=== PATIENT | female | born 1995 | race Caucasian/White ===

== ENCOUNTER 2016-09-10 20:27 | Emergency (ER) | payer BC ==
[2016-09-10 21:04] LABS: URINE MUCUS NONE SEEN (Up to 25%)
[2016-09-10] MEDS ORDERED: ONDANSETRON HCL 4 MG/2 ML VIAL ONE (21:10)
[2016-09-10 21:12] LABS: BASOPHILS 0.5 % (0.0-2.0); EOSINOPHILS 1.5 % (0.0-6.0); EOSINOPHILS# 0.1 X 10^3uL (0.0-0.4); HEMATOCRIT 41.4 % (36.0-48.0); HEMOGLOBIN 14.6 g/dL (12.0-16.0); LYMPHOCYTES# 1.7 X 10^3uL (0.8-3.8); MEAN CELL VOLUME 82.1 fL (80.0-100.0); MEAN CORPUS. HGB CONCENTRATION 35.3 g/dL (32.0-36.0); MEAN CORPUSCULAR HEMOGLOBIN 28.9 pg (29.0-35.0); MEAN PLATELET VOLUME 8.2 fL (7.4-10.4); MONOCYTES 6.3 % (2.0-10.0); MONOCYTES# 0.6 X 10^3uL (0.2-1.0); NEUTROPHILS 72.7 % (54.0-75.0); NEUTROPHILS# 6.7 X 10^3uL (2.6-6.7); PLATELET COUNT 376 X 10^3uL (130-440); RED BLOOD COUNT 5.05 X 10^6uL (4.20-6.10); RED CELL DISTRIBUTION WIDTH 12.9 % (11.5-14.5); WHITE BLOOD COUNT 9.1 X 10^3uL (3.9-10.7)
[2016-09-10 21:18] LABS: ALBUMIN 4.2 g/dL (3.5-5.0); ALKALINE PHOSPHATASE 45 U/L (38-126); ALT 44 U/L (9-52); AST 45 U/L (14-36); BILIRUBIN, DIRECT 0.1 mg/dL (0.0-0.4); BILIRUBIN, TOTAL 0.7 mg/dL (0.2-1.3); BLOOD UREA NITROGEN 6 mg/dL (7-17); CALCIUM 9.4 mg/dL (8.4-10.2); CHLORIDE 101 mmol/L (98-107); EST GLOMERULAR FILTRATION RATE > 60 mL/min; GLUCOSE 109 mg/dL (70-100); LIPASE 26 U/L (23-300); POTASSIUM 3.8 mmol/L (3.5-5.1); SODIUM 137 mmol/L (137-145); TOTAL PROTEIN 7.8 g/dL (6.3-8.2)
[2016-09-10 21:58] LABS: URINE APPEARANCE SLIGHTLY CLOUDY; URINE BILIRUBIN NEGATIVE (NEGATIVE); URINE BLOOD 250 Ery/uL (3+) (NEGATIVE); URINE COLOR YELLOW; URINE GLUCOSE NORMAL (NEGATIVE); URINE KETONE NEGATIVE (NEGATIVE); URINE LEUKOCYTE ESTERASE TRACE (NEGATIVE); URINE NITRITE NEGATIVE (NEGATIVE); URINE PROTEIN 300mg/dL (3+) (NEG - TRACE); URINE SPECIFIC GRAVITY 1.025 (0.001-1.035); URINE UROBILINOGEN 0.2mg/dL (Normal) (NEG-1mg/dL)
[2016-09-10 21:59] LABS: URINE SQUAMOUS EPITHELIAL CELL 0-5/hpf (<= 15/hpf)
--- NOTE | 2016-09-10 23:19 | CT REPORT ---
EXAMINATION: CT OF THE ABDOMEN AND PELVIS WITH IV CONTRAST INDICATION: Right-sided abdominal/back pain. [facility] [place] TECHNIQUE: Transaxial images of the abdomen and pelvis were obtained from the diaphragmatic dome to t he ischial tuberosity according to routine abdomen and pelvis protocol, following the administration of intravenous contrast material, 100 ml. This examination was performed using automated exposure c ontrol, adjustment of mA or kV according to patient size, and/or use of iterative reconstruction tech nique. COMPARISON: None FINDINGS: Liver: The liver appears normal in size, shape, and attenuation without evidence of worrisome lesions on this exam. Patent portal veins. Bile ducts: No intra- or extra-hepatic dilation. Gallbladder: No gallstones or wall thickening. Pancreas: Normal. Spleen: No splenomegaly. Adrenals: Normal adrenal glands. Kidneys/Urinary Bladder: There is mild right hydroureteronephrosis and stranding around the right ure ter with right urothelial thickening without an obstructing lesion identified suspicious for ureterit is/urinary tract infection. Urinary bladder is thin walled and distended. Reproductive organs: The pelvic organs appear normal GI tract/Mesentery: Normal appendix. No obstruction. Vascular: Aorta and IVC appear normal. Peritoneum/retroperitoneum: No free fluid or free air. Lymph Nodes: No significant lymphadenopathy in the abdomen or pelvis. Bones: Bones appear normal without evidence of acute fractures. Superficial Soft Tissue: Normal. Lower chest: The demonstrated lung bases are clear. IMPRESSION: 1. Mild right hydroureteronephrosis and stranding around the right ureter with right urothelial thic kening without an obstructing lesion identified suspicious for infectious or inflammatory ureteritis/ urinary tract infection. Recently passed calculus with superimposed infectious or inflammatory right ureteritis may also be contributory. Correlate with urinalysis as clinically warranted. 2. Follicular activity in the ovaries within physiologic limits. COMMUNICATION: Dr. Nikolai Gary discussed the pertinent results with Dr. Boswell at 09/10/2016 11:16 PM. Final Electronic Signature: This report was electronically signed by Giovanny Gary MD on 11:16 PM. ramin /
[2016-09-10] MEDS ORDERED: NORMAL SALINE ADDVANTAGE 100 ML IV ONE (23:43)
[2016-09-10] MEDS ORDERED: cefTRIAXone SODIUM 1,000 MG/10 ML VIAL ONE (23:43)
--- NOTE | 2016-09-11 00:09 | ER NURSING DOCUMENTATION ---
Nurse's Notes [facility] [place] Name:Lizzy Winter Age:21 yrs Sex:Female :1995 Arrival Date:09/10/2016 Time:20:27 Bed6 Private MD:Physician, No Diagnosis:Bladder Infection (UTI) Presentation: 09/10 20:32 Acuity: TERRI 3 rh 20:38 Presenting complaint: Patient states: Right sided flank pain that began last night. rh Transition of care: Home. 20:38 Method Of Arrival: Walk In Triage Assessment: 20:40 General: Appears in no apparent distress, Behavior is cooperative. Pain: Complains of rh pain in right upper quadrant and right lower quadrant. EENT: Oral mucosa is dry. Neuro: Level of Consciousness is awake, alert, obeys commands, Oriented to person, place, time, event. Cardiovascular: Capillary refill < 3 seconds Chest pain is denied. Respiratory: Airway is patent Respiratory effort is even, unlabored, Respiratory pattern is regular, symmetrical, Breath sounds are clear bilaterally. GI: Abdomen is non- distended Abdomen is tender to palpation in right upper quadrant and right lower quadrant Reports cramping, nausea, vomiting. : No deficits noted. Derm: Skin is intact, is healthy with good turgor, Skin is pink, warm & dry. Musculoskeletal: Circulation, motion, and sensation intact Range of motion intact in all extremities. Historical: - Allergies: No known drug Allergies; - Home Meds: 1. CONTROL - PMHx: None; - PSHx: None; - Tetanus: < 10 years. - Ebola Screening: : Patient negative for fever greater than or equal to 101.5 degrees Fahrenheit, and additional compatible Ebola Virus Disease symptoms. - Immunization history: Flu Vaccine < 1 year. - Social history: Smoking status: Patient states was never smoker of tobacco. Screenin:41 Infectious Disease Risk None. Abuse screen: Denies threats or abuse. Denies injuries rh from another. Nutritional screening: No deficits noted. Assessment: 20:41 See Triage Assessment done by same RN. Vital Signs: 20:47 BP 123 / 75; Pulse 94; Resp 18; Temp 98.7(O); Pulse Ox 94% on R/A; Weight 68.04 kg; rh Height 5 ft. 6 in. (167.64 cm); Pain 7/10; 21:04 BP 128 / 85; Pulse 91; Resp 16; Pulse Ox 96% on R/A; rh 23:00 BP 113 / 68; Pulse 88; Resp 16; Pulse Ox 94% on R/A; rh 09/11 00:07 BP 120 / 67; Pulse 80; Resp 16; Pulse Ox 94% on R/A; Pain 2/10; rh 09/10 20:47 Body Mass Index 24.21 (68.04 kg, 167.64 cm) rh ED Course: 09/10 20:31 Patient arrived in ED. ma1 20:31 Physician, No is Private Physician. ma1 20:32 Triage completed. rh 20:41 Notified ED Physician of patient's arrival and chief complaint. Dr. Boswell notified. rh 20:41 Valuables Remains with patient Patient has correct armband on for positive rh identification. Placed in gown. Bed in low position. Call light in reach. Side rails up X 1. 20:45 Urine collected. Clean catch specimen. em1 20:58 Inserted saline lock: 20 gauge in right antecubital area and blood collected. em1 21:00 Claire Corea is Primary Nurse. rh 21:20 Oxygen Oxygen administration via nasal cannula @ 2L/min. rh 22:10 J Luis Boswell MD is Attending Physician. tl1 22:30 Patient moved to PR. dnn 22:58 Patient moved back from PR. dnn 09/11 00:05 Discontinued IV lock bleeding controlled, pressure dressing applied. em1 Administered Medications: 09/10 21:00 Drug: Zofran 4 mg; Route: IVP; Infused Over: 2 mins; Site: right antecubital; rh 22:10 Follow up: Response: No adverse reaction rh 21:00 Drug: NS 0.9% 1000 ml; Route: IV; Rate: bolus; Site: right antecubital; rh 22:00 Follow up: IV Status: Completed infusion; IV Intake: 1000ml rh 21:38 Drug: Dilaudid 1 mg; Route: IVP; Site: right antecubital; rh 22:10 Follow up: Response: Pain is decreased rh 23:33 Drug: cefTRIAXone 1 grams, NS 0.9% 100 ml; Route: IVPB; Infused Over: 30 mins; Site: rh right antecubital; 09/11 00:07 Follow up: IV Status: Completed infusion; IV Intake: 100ml rh Intake: 09/10 22:00 IV: 1000ml; Total: 1000ml. rh 09/11 00:07 IV: 100ml; Total: 1100ml. rh Outcome: 09/10 23:45 Discharge ordered by . tl1 09/11 00:08 Discharged to home ambulatory, with significant other. Condition: improved Discharge Assessment: Patient awake, alert and oriented x 3. No cognitive and/or functional deficits noted. Patient verbalized understanding of disposition instructions. Discharge instructions given to patient, significant other, Instructed on discharge instructions, follow up and referral plans. medication usage, no drinking with medication, no driving heavy equipment, Demonstrated understanding of instructions, medications, Prescriptions given X 2. IV D/Romulo 00:08 Patient left the ED. Signatures: Joseph Farah [facility] J Luis Boswell MD MD tl1 Claire Corea Blanca [place] hi1
--- NOTE | 2016-09-13 00:08 | ER PHYSICIAN DOCUMENTATION ---
Physician Documentation [facility] Name:Lizzy Winter Age:21 yrs Sex:Female :1995 Arrival Date:09/10/2016 Time:20:27 Bed6 Private MD:, Marianne ED J Luis Mendoza Disposition: 09/10 23:00 Chart complete. Chart complete. Chart complete. Chart complete. tl1 09/12 15:17 Chart complete. tl1 Disposition: 09/10/16 23:45 Discharged to Home/Self Care. Impression: Bladder Infection (UTI). - Condition is Good. - Discharge Instructions: BLADDER INFECTION, Female (Adult). - Prescriptions for cefdinir 300 mg Oral capsule - take 1 capsule by ORAL route every 12 hours for 7 days; 14 capsule. Pyridium 200 mg Oral tablet - take 1 tablet by ORAL route 3 times per day; 6 tablet. - Medical Reconciliation form form. - Follow up: Private Physician; When: 7 - 10 days; Reason: Recheck today's complaints, Continuance of care. - Problem is new. - Symptoms have improved. HPI: 09/10 21:00 This 21 yrs old Female presents to ER via Walk In with complaints of Back tl1 Pain - RIGHT SIDE. 21:00 The patient presents with pain that is acute. 2 days ago she noted some urinary urgency tl1 and frequency. Last night she developed the fairly sudden onset of right flank and right lower quadrant pain that is mostly steady, moderately severe. No f/c/s. No N/V/D. No dysuria. FH negative for kidney stones.. Historical: - Allergies: No known drug Allergies; - Home Meds: 1. CONTROL - PMHx: None; - PSHx: None; - Tetanus: < 10 years. - Ebola Screening: : Patient negative for fever greater than or equal to 101.5 degrees Fahrenheit, and additional compatible Ebola Virus Disease symptoms. - Immunization history: Flu Vaccine < 1 year. - Social history: Smoking status: Patient states was never smoker of tobacco. ROS: 21:30 Back: Positive for right flank pain. tl1 21:30 All other systems are negative. Exam: 21:30 Constitutional: This is a well developed, well nourished patient who is awake, alert, tl1 and in no acute distress. 21:30 Head/Face: Normocephalic, atraumatic. tl1 21:30 Neck: ROM/movement: is normal, is supple. 21:30 Cardiovascular: Rate: normal, Rhythm: regular, Heart sounds: normal. 21:30 Respiratory: Respirations: normal, Breath sounds: are normal. 21:30 Abdomen/GI: Inspection: abdomen appears normal, Palpation: soft, mild abdominal tenderness, in the right lower quadrant, mass, is not appreciated, rebound tenderness, is not appreciated, no appreciated organomegaly. 21:30 Back: pain, ROM is normal, CVA tenderness, that is moderate, is noted on the right. 21:30 Skin: Exam negative for acute changes. 21:30 Neuro: Orientation: is normal, Mentation: appropriate for stated age, Memory: no acute changes, Cranial nerves: grossly normal. Vital Signs: 20:47 BP 123 / 75; Pulse 94; Resp 18; Temp 98.7(O); Pulse Ox 94% on R/A; Weight 68.04 kg; rh Height 5 ft. 6 in. (167.64 cm); Pain 7/10; 21:04 BP 128 / 85; Pulse 91; Resp 16; Pulse Ox 96% on R/A; rh 23:00 BP 113 / 68; Pulse 88; Resp 16; Pulse Ox 94% on R/A; rh 09/11 00:07 BP 120 / 67; Pulse 80; Resp 16; Pulse Ox 94% on R/A; Pain 2/10; rh 06 20:47 Body Mass Index 24.21 (68.04 kg, 167.64 cm) rh MDM: 09/10 20:35 Patient medically screened. tl1 22:32 Patient medically screened. tl1 23:00 Differential diagnosis: Pyelonephritis Ureterolithiasis. Data reviewed: vital signs, tl1 nurses notes, lab test result(s), CBC, electrolytes, hepatic panel, urinalysis, radiologic studies, CT scan, and as a result, I will discharge patient. Test interpretation: by ED physician or midlevel provider:. Counseling: I had a detailed discussion with the patient and/or guardian regarding: the historical points, exam findings, and any diagnostic results supporting the discharge/admit diagnosis, lab results, radiology results, the need for outpatient follow up, to return to the emergency department if symptoms worsen or persist or if there are any questions or concerns that arise at home. Medication response: The patient's symptoms have improved. Response to treatment: the patient's symptoms have mildly improved after treatment, and as a result, I will discharge patient. 09/10 21:25 Order name: CBC AUTO DIF, MDIF/RMOR IF IND; Complete Time: 22:14 [facility] 09/10 22:13 Interpretation: WHITE BLOOD COUNT 9.1; HEMOGLOBIN 14.6; HEMATOCRIT 41.4; PLATELET COUNT tl1 376. 09/10 21:27 Order name: BASIC METABOLIC PANEL; Complete Time: 22:14 [facility] 09/10 22:13 Interpretation: SODIUM 137; POTASSIUM 3.8; CHLORIDE 101; CARBON DIOXIDE 21; GLUCOSE tl1 109; BLOOD UREA NITROGEN 6; CREATININE 0.7; EST GLOMERULAR FILTRATION RATE > 60; CALCIUM 9.4. 09/10 21:27 Order name: HEPATIC PANEL; Complete Time: 22:14 [facility] 09/10 22:13 Interpretation: Normal Except: AST 45. tl1 09/10 21:27 Order name: LIPASE; Complete Time: 22:14 [facility] 09/10 21:34 Order name: HCG, SERUM; Complete Time: 22:14 [facility] 09/10 21:34 Order name: UA W/ MICRO -CULTURE IF IND; Complete Time: 22:14 [facility] 09/11 07:50 Order name: URINE CULTURE [facility] 09/12 11:40 Order name: NEGATIVE SENSITIVITY PANEL [facility] 09/10 23:20 Order name: CAT SCAN; ABDOMEN W/CON [id number] [facility] 09/10 20:55 Order name: NPO; Complete Time: 21:00 09/10 20:59 Order name: Iv Saline Lock; Complete Time: 21:00 09/10 21:53 Order name: Oxygen; Complete Time: 21:53 rh Dispensed Medications: 21:00 Drug: Zofran 4 mg; Route: IVP; Infused Over: 2 mins; Site: right antecubital; rh 22:10 Follow up: Response: No adverse reaction rh 21:00 Drug: NS 0.9% 1000 ml; Route: IV; Rate: bolus; Site: right antecubital; rh 22:00 Follow up: IV Status: Completed infusion; IV Intake: 1000ml rh 21:38 Drug: Dilaudid 1 mg; Route: IVP; Site: right antecubital; rh 22:10 Follow up: Response: Pain is decreased 23:33 Drug: cefTRIAXone 1 grams, NS 0.9% 100 ml; Route: IVPB; Infused Over: 30 mins; Site: rh right antecubital; 09/11 00:07 Follow up: IV Status: Completed infusion; IV Intake: 100ml rh Signatures: J Luis Boswell MD MD tl1 Claire Corea
== END 2016-09-11 00:09 | disposition home or self-care (01) ==
LOC: ER 20:27
DX: N39.0 Urinary tract infection, site not specified (principal); B96.20 Unspecified Escherichia coli [E. coli] as the cause of diseases classified elsewhere
CPT/HCPCS: 74160; 80048; 80076; 81001; 83690; 84703; 85025; 87077; 87086; 87186; 96361; 96365; 96375; 99285; J0696; J1170; J2405